=== PATIENT | male | born 1955 | race Caucasian/White ===

== ENCOUNTER → 2021-03-10 | Outpatient (CLI) | payer MEDICARE, OTHER ==
[~2021-03-10] VITALS: Ht 165.1 cm; Wt 85.5 kg
[2021-03-10 11:06] VITALS: BP 112/63
== END | disposition home or self-care (01) ==
LOC: SRCNTR 10:06
PROVIDERS: ATTEND Internal Medicine Critical Care Medicine
DX: E11.9 Type 2 diabetes mellitus without complications (principal); J44.9 Chronic obstructive pulmonary disease, unspecified
CPT/HCPCS: G0463